=== PATIENT | female | born 1985 | race Caucasian/White ===

== ENCOUNTER 2016-09-27 15:02 | Emergency (ER) | payer MEDICAID ==
[~2016-09-27] VITALS: Ht 165.1 cm; Wt 98.0 kg
[2016-09-27 16:59] LABS: BASOPHIL % 0.6 % (0-2); PLATELET COUNT 266 x10^3mcL (130-400); RED CELL DISTRIBUTION WIDTH 13.7 % (11.5-14.5)
[2016-09-27 18:11] VITALS: BP 120/70
== END 2016-09-27 18:11 | disposition home or self-care (01) ==
LOC: ED 15:02
PROVIDERS: Emergency Medicine
DX: O20.0 Threatened abortion (principal); Z3A.01 Less than 8 weeks gestation of pregnancy

== ENCOUNTER 2016-10-01 11:01 | Emergency (ER) | payer MEDICAID ==
[~2016-10-01] VITALS: Ht 165.1 cm; Wt 96.2 kg
[2016-10-01 11:10] VITALS: BP 93/63
[2016-10-01 11:36] LABS: BASOPHIL % 0.4 % (0-2); PLATELET COUNT 257 x10^3mcL (130-400); RED CELL DISTRIBUTION WIDTH 13.5 % (11.5-14.5)
== END 2016-10-01 13:18 | disposition home or self-care (01) ==
LOC: ED 11:01
PROVIDERS: Emergency Medicine
DX: O20.0 Threatened abortion (principal); Z3A.01 Less than 8 weeks gestation of pregnancy

== ENCOUNTER 2016-10-07 15:05 | Inpatient (IN) | payer MEDICAID ==
[~2016-10-07] VITALS: Ht 165.1 cm; Wt 97.0 kg
--- NOTE | 2016-10-07 15:33 | NUR ---
DR. SPARKS AT BEDSIDE FOR MSE
--- NOTE | 2016-10-07 15:33 | NUR ---
PT TO BED OB FOR C/O VAGINAL BLEEDING X 3 DAYS, PT REPORTS SPOTTING ON SATURDAY AND HEAVY BLEEDING ON SATURDAY, STS REPORTS SPOTTING AT THIS TIME, DENIES DENIES WEARING A PAD, PT STS LOW BACK PAIN 12/17 AFTER BLEEDING STARTED, PT DENIES RECENT TRAUMA FALL OR INJURY, DENIES URINARY BURNING/PAIN, STS APPROX 1 MONTH , TA1, PT AAOX4, RESP EVEN AND UNLABORED, IN NO ACUTE DISTRESS, CALL LIGHT WITHIN REACH, WILL CONTINUE TO MONITOR
--- NOTE | 2016-10-07 15:48 | NUR ---
CHAPERONED WITH DR. SPARKS FOR PELVIC EXAM, PT TOLERATED WELL, PT BACK IN A POSITION OF COMFORT, INST PT TO PROVIDE URINE SAMPLE SOON POSSIBLE, URINE CUP PROVIDED TO PT PT TAKEN TO ULTRASOUND VIA W/C IN A STABLE CONDITION
--- NOTE | 2016-10-07 16:01 | NUR ---
PT BACK FROM ULTRASOUND WITH NO INCIDENCE
--- NOTE | 2016-10-07 16:03 | NUR ---
PT AMBULATED WITH STEADY GAIT TO RESTROOM TO PROVIDE A URINE SAMPLE
--- NOTE | 2016-10-07 16:32 | NUR ---
PT STS "I ACCIDENTALLY DROPPED THE URINE WITH THE CUP IN THE TOILET" INST PT TO PROVIDE MUCH URINE SHE CAN AGAIN, SMALL AMOUNT OF URINE COLLECTED BUT INSUFFICIENT AMOUNT TO BE SENT TO LAB FOR UA PER [employer], DR. SPARKS MADE AWARE, PER DR. SPARKS TO DIP URINE AND NO NEED TO SEND URINE TO LAB FOR UA
--- NOTE | 2016-10-07 16:36 | NUR ---
LAB AT BEDSIDE FOR BLOOD DRAW
[2016-10-07 16:58] LABS: BASOPHIL % 1.6 % (0-2); PLATELET COUNT 252 x10^3mcL (130-400); RED CELL DISTRIBUTION WIDTH 12.4 % (11.5-14.5)
--- NOTE | 2016-10-07 17:26 | NUR ---
PT AMBULATORY WITH STEADY GAIT TO RESTROOM AND BACK TO TREATMENT AREA WITH NO INCIDENCE, PT REPORTS PAIN LOWERED AT THIS TIME, IN NO ACUTE DISTRESS, WILL CONTINUE TO MONITOR
--- NOTE | 2016-10-07 18:57 | NUR ---
DR. SPARKS AT BEDSIDE DISCUSSING POC WITH PT
--- NOTE | 2016-10-07 19:41 | NUR ---
REPORT REC'D FROM [facility]
[2016-10-07 19:48] LABS: CARBON DIOXIDE 25.3 mmol/L (21-32); CHLORIDE SERUM 105 mmol/L (98-107); CREATININE SERUM 0.8 mg/dL (0.6-1.0); GFR1 > 60 mL/min; GLUCOSE SERUM 91 mg/dL (74-106); POTASSIUM SERUM 3.5 mmol/L (3.5-5.1); SODIUM SERUM 140 mmol/L (136-145)
[2016-10-07 19:53] LABS: ALKALINE PHOSPHATASE 86 U/L (46-116); ALT/SGPT 51 U/L (14-59); AST/SGOT 35 U/L (15-37); TOTAL PROTEIN, SERUM 7.8 g/dL (6.4-8.2)
[2016-10-07] MEDS ORDERED: PRENATAL VITAMI1 TA1 (20:14)
--- NOTE | 2016-10-07 20:23 | NUR ---
MED REC COMPLETED AND MRSA SWAB OBT AND SENT TO LAB
--- NOTE | 2016-10-07 20:31 | NUR ---
REPORT CALLED AND NEGRA TO [facility]. PT TO GO TO TELE RM [id number]
[2016-10-07 20:39] LABS: UA SPECIFIC GRAVITY 1.025 (1.005-1.035); microscopic required? YES; urine erythrocyte 1+ (NEGATIVE)
--- NOTE | 2016-10-07 20:45 | NUR ---
RECEIVED PT FROM ED [facility]IA [facility], CAME IN DUE TO VAGINAL BLEED SINCE SATURDAY. AAOX4. DENIES HEADACHE/DIZZINESS. NO SOB NOTED, LUNG SOUNDS CTA. DENIES CHEST PAIN/PRESSURE, NSR ON THE MONITOR. DENIES ABDOMINAL DISCOMFORT. STATED THAT SHE CHANGED HER PAD X1 TODAY. IV SITE PATENT AND INTACT. SIDE RAILS UPX2. CALL LIGHT ON REACH. ENDORSED TO PRIMARY NURSE JEFFERSON FOR CONTINUITY OF CARE
[2016-10-07 20:47] LABS: BASOPHIL % 0.6 % (0-2); PLATELET COUNT 254 x10^3mcL (130-400); RED CELL DISTRIBUTION WIDTH 13.7 % (11.5-14.5)
[2016-10-07 21:02] LABS: CHOLESTEROL/HDL RATIO 3.3
[2016-10-07 21:04] VITALS: BP 109/60
[2016-10-07 21:09] VITALS: Ht 165.1 cm; Wt 97.0 kg
[2016-10-07 21:09] LABS: FREE T4 0.85 ng/dL (0.76-1.46); FREE THYROXINE INDEX 1.7 ug/dL (1.4-4.5); T4(THYROXINE) 5.7 ug/dL (4.7-13.3)
[2016-10-07 21:10] LABS: T3 TOTAL 1.01 ng/mL
[2016-10-07 21:14] LABS: AMPHETAMINE QUAL UR NONE DETECTED (NEG <=1000)
--- NOTE | 2016-10-07 21:44 | NUR ---
PM MEDS GIVEN,SWALLOWS WELL.WILL BE NPO AFTER MIDNITE,RIGHT NOW GIVEN HER JELLO AND OJ.REMINDED TO SAVE THE PAD FOR ME TO SEE.NS AT 100 CC/ HOUR RFA,SAYS IT BOHER HER BUT NOT SWOLLEN,SITE CHANHED BY ALEISHA GURROLA WITH GOOD BLOOD RETURN,NS RESUMED WITH NO INCIDENT, AND SISTER VISITING,SUPPORTIVE OF CARE.CALL LIGHT IN REACH.
[2016-10-07 22:02] VITALS: BP 109/60
--- NOTE | 2016-10-08 01:18 | NUR ---
STAYING FOR TONITE,VERY SUPPORTIVE OF CARE.NS ORDERED INFUSING.CALL LIGHT IN REACH.
--- NOTE | 2016-10-08 03:02 | NUR ---
SLEEPING COMFORTABLY,CALL LITE IN REACH.
--- NOTE | 2016-10-08 05:24 | NUR ---
PATIENT REMINDED TO SAVE SANITARY PAD FOR HOW STRONG VAGINAL BLEEDING,VERY SCANTY NOTED.UP IN RESTROOM VOIDING QS.NEW IV BAG AT THIS TIME,IV SITE LFA PATENT.OB GYNE CONSULT Lissa MERCER,PATIENT REMAINS NPO X MED.WILL ENDORSE TO INCOMING SHIFT.CALL LIGHT IN REACH.
[2016-10-08 05:47] VITALS: BP 102/65
[2016-10-08 06:37] LABS: BASOPHIL % 0.8 % (0-2); CALCIUM 8.5 mg/dL (8.5-10.1); CARBON DIOXIDE 23.7 mmol/L (21-32); CHLORIDE SERUM 105 mmol/L (98-107); CREATININE SERUM 0.7 mg/dL (0.6-1.0); GFR1 > 60 mL/min; GLUCOSE SERUM 91 mg/dL (74-106); MAGNESIUM 2.1 mg/dL (1.8-2.4); PHOSPHOROUS 3.6 mg/dL (2.5-4.9); PLATELET COUNT 250 x10^3mcL (130-400); POTASSIUM SERUM 3.2 mmol/L (3.5-5.1); RED CELL DISTRIBUTION WIDTH 13.9 % (11.5-14.5); SODIUM SERUM 139 mmol/L (136-145)
[2016-10-08 10:01] VITALS: BP 97/65
--- NOTE | 2016-10-08 10:39 | NUR ---
TELEMETRY REMOVED ORDERED AND RETURNED.
--- NOTE | 2016-10-08 12:39 | NUR ---
PT RESTING IN BED, DENIES ANY PAIN OR DISCOMFORT AT THIS TIME. PT STATED IS NOT WEARING A PAD ANYMORE, HAS NO BLOOD COMING OUT. PT IS A/O X4 , TELE WAS DC THIS MORNING, HR 77 NSR, PULSES +, - EDEMA NOTED , PT HAS SCD APPLIED WELL RESTING IN BED. RESP CLEAR, 02 97% RA, PT REMAINS NPO FOR POSSIBLE PROCEDURE, LAST BM WAS 10/08, ACTIVE BOWEL SOUNDS HEARD IN ALL FOUR QUADS, VOIDING REG AND AMBULATORY . SKIN WNL, IV LFA NS 100ML/HR, PT IS CALM AND RELAX AT THIS TIME. CALL LIGHT IN REACH, SCD IN PLACE, WILL CONTINUE TO MONITOR PT.
[2016-10-08 13:35] VITALS: BP 93/56
--- NOTE | 2016-10-08 13:43 | NUR ---
DR TT. MERCER (SENIOR TECHNICAL ANALYST) AT BEDSIDE TO EVALUATE PATIENT.
--- NOTE | 2016-10-08 15:23 | NUR ---
PT RESTING IN BED WITH BY SIDE. NO PAIN AT THIS TIME OR SIGN OF DISCOMFORT. SCD APPLIED, CALL LIGHT IN REACH, WILL CONTINUE TO MONITOR.
[2016-10-08] MEDS ORDERED: VINATE M1 TAB PO (15:24)
[2016-10-08 15:53] VITALS: BP 93/56
--- NOTE | 2016-10-08 16:35 | NUR ---
VERBALLY WENT OVER DISCHAGE WITH PT, IS AWARE OF ALL INFORMATION AND UNDERSTANDS ALL INSTRUCTIONS GIVEN FOR MEDICATIONS SHE NEEDS TO CONTINUE. DC IV, PT IS GETTING DRESS AND WILL CALL THE NURSE STATION WHEN SHE IS DRESS AND READY TO LEAVE.
--- NOTE | 2016-10-08 17:04 | NUR ---
ASISTED PT IN THE BATHROOM, HAD SOME VAGINAL BLOOD SPOTTING. GAVE HER A NEW PAD AND CLEAN UNDERWEAR. PT WILL FOLLOW UP WITH DR MERCER TOMORROW.
--- NOTE | 2016-10-08 17:14 | NUR ---
GAVE PT K MED DUE TO POTASSIUM LEVEL 3.2, TOLERATED MED WELL. PT HAD NO ACUTE DISTRESS NOTED ON DISCHARGE.
[2016-10-09] MEDS ORDERED: HIBICLENS118 ML TOP ×2 (10:25)
[2016-10-09] MEDS ORDERED: BACO TOP ×2 (10:25)
== END 2016-10-08 17:18 | disposition home or self-care (01) | DRG 563 ==
LOC: ED 15:05 → DU 19:07 → MU 19:07 → DU 20:50 → MU 10-08 10:23
PROVIDERS: Specialist; ADMIT Family Medicine
DX: O20.0 Threatened abortion (principal); Z68.37 Body mass index [BMI] 37.0-37.9, adult; E03.9 Hypothyroidism, unspecified; E87.6 Hypokalemia; F17.210 Nicotine dependence, cigarettes, uncomplicated; Z3A.01 Less than 8 weeks gestation of pregnancy
CPT/HCPCS: 80307; 83880; 84439; J7030; Q0092

== ENCOUNTER 2016-10-12 10:27 | Emergency (ER) | payer MEDICAID ==
[~2016-10-12] VITALS: Ht 535.9 cm; Wt 95.7 kg
[~2016-10-12 10:27] MED LIST: BACO TOP; HIBICLENS118 ML TOP; PRENATAL VITAMI1 TA1; VINATE M1 TAB PO
[2016-10-12 11:40] LABS: BASOPHIL % 0.6 % (0-2); PLATELET COUNT 238 x10^3mcL (130-400); RED CELL DISTRIBUTION WIDTH 13.8 % (11.5-14.5)
[2016-10-12 14:08] VITALS: BP 116/67
== END 2016-10-12 14:08 | disposition home or self-care (01) ==
LOC: ED 10:27
PROVIDERS: Emergency Medicine
DX: O20.0 Threatened abortion (principal); Z3A.01 Less than 8 weeks gestation of pregnancy

== ENCOUNTER 2018-01-24 21:31 | Emergency (ER) | payer MEDICAID ==
[~2018-01-24] VITALS: Ht 160 cm; Wt 83.5 kg
[2018-01-24 21:49] VITALS: Ht 160 cm; Wt 83.5 kg
[2018-01-24 22:22] LABS: microscopic required? NO
[2018-01-24 22:29] LABS: UA SPECIFIC GRAVITY 1.025 (1.005-1.035); urine erythrocyte NEGATIVE (NEGATIVE)
[2018-01-24 22:30] LABS: BASOPHIL % 0.5 % (0-2); PLATELET COUNT 315 x10^3mcL (130-400)
[2018-01-24 22:31] LABS: RED CELL DISTRIBUTION WIDTH 16.5 % (11.5-14.5)
[2018-01-24 22:38] LABS: AMPHETAMINE QUAL UR NONE DETECTED (See below)
[2018-01-24 22:51] LABS: CALCIUM 8.8 mg/dL (8.5-10.1); CARBON DIOXIDE 27.9 mmol/L (21-32); CHLORIDE SERUM 106 mmol/L (98-107); CREATININE SERUM 1.2 mg/dL (0.6-1.0); GFR1 56 mL/min; GLUCOSE SERUM 88 mg/dL (74-106); POTASSIUM SERUM 3.9 mmol/L (3.5-5.1); SODIUM SERUM 139 mmol/L (136-145)
[2018-01-24 23:00] LABS: ALBUMIN 3.7 g/dL (3.4-5.0); ALKALINE PHOSPHATASE 214 U/L (46-116); ALT/SGPT 89 U/L (14-59); AST/SGOT 60 U/L (15-37); BILIRUBIN TOTAL 0.18 mg/dL (0.20-1.00); TOTAL PROTEIN, SERUM 8.2 g/dL (6.4-8.2)
[2018-01-24 23:41] VITALS: BP 104/73
== END 2018-01-24 23:41 | disposition home or self-care (01) ==
LOC: ED 21:31
PROVIDERS: Emergency Medicine
DX: F53 Mental and behavioral disorders associated with the puerperium, not elsewhere classified (principal)
CPT/HCPCS: 36415; G0480

== ENCOUNTER 2018-02-08 19:30 | Emergency (ER) | payer MEDICAID ==
[~2018-02-08] VITALS: Ht 162.6 cm; Wt 84.8 kg
[2018-02-08 19:36] VITALS: Ht 162.6 cm; Wt 84.8 kg
[2018-02-08 21:57] VITALS: BP 110/68
== END 2018-02-08 21:57 | disposition home or self-care (01) ==
LOC: ED 19:30
DX: S39.012A Strain of muscle, fascia and tendon of lower back, initial encounter (principal); X50.0XXA Overexertion from strenuous movement or load, initial encounter; X50.9XXA Other and unspecified overexertion or strenuous movements or postures, initial encounter; Y93.89 Activity, other specified; Y92.89 Other specified places as the place of occurrence of the external cause; Y99.8 Other external cause status

== ENCOUNTER 2018-10-07 14:28 | Emergency (ER) | payer OTHER ==
[~2018-10-07] VITALS: Ht 162.6 cm; Wt 92.1 kg
[2018-10-07 14:44] VITALS: BP 108/67; Ht 162.6 cm; Wt 92.1 kg
== END 2018-10-07 16:00 | disposition home or self-care (01) ==
LOC: ED 14:28
DX: M25.532 Pain in left wrist (principal); M25.531 Pain in right wrist; M25.542 Pain in joints of left hand; M25.541 Pain in joints of right hand; Z79.899 Other long term (current) drug therapy